=== PATIENT | female | born 1970 | race Caucasian/White ===

== ENCOUNTER → 2019-07-17 | Outpatient (REF) | payer MEDICAID | LOC: M LAB LCGH 12:02 | PROVIDERS: ATTEND Nurse Practitioner Family | DX: Z12.4 Encounter for screening for malignant neoplasm of cervix (principal) ==

== ENCOUNTER 2021-12-05 00:04 | Emergency (ER) | payer MEDICAID ==
[2021-12-05 02:05] LABS: HEMATOCRIT 41.6 % (36.0-47.0); HEMOGLOBIN 14.1 g/dl (12.0-15.5); MEAN CORPUSCULAR HEMOGLOBIN 33.8 pg (27.0-33.0); MEAN CORPUSCULAR HGB CONC 33.9 g/dl (32.0-36.5); MEAN CORPUSCULAR VOLUME 99.8 fl (80.0-96.0); PLATELET COUNT, AUTOMATED 278 10^3/uL (150-450); RED BLOOD COUNT 4.17 10^6/uL (4.00-5.40); WHITE BLOOD COUNT 8.5 10^3/uL (4.0-10.0)
[2021-12-05 02:32] LABS: HCG, SERUM QUALITATIVE NEGATIVE (NEGATIVE)
[2021-12-05 02:35] LABS: AMPHETAMINES LEVEL URINE NEGATIVE (NEGATIVE); BARBITURATES URINE NEGATIVE (NEGATIVE); BENZODIAZEPINES URINE NEGATIVE (NEGATIVE); CANNABINOIDS URINE NEGATIVE (NEGATIVE); COCAINE METABOLITE URINE NEGATIVE (NEGATIVE); METHADONE URINE NEGATIVE (NEGATIVE); OPIATES URINE NEGATIVE (NEGATIVE); PHENCYCLIDINE URINE NEGATIVE (NEGATIVE)
[2021-12-05 03:06] LABS: ACETAMINOPHEN LEVEL < 2.0 UG/ML (10.0-30.0); ALBUMIN 3.8 GM/DL (3.2-5.2); ALT/SGPT 55 U/L (12-78); BILIRUBIN,DIRECT < 0.1 MG/DL (0.0-0.2); BILIRUBIN,TOTAL 0.2 MG/DL (0.2-1.0); BLOOD UREA NITROGEN 9 MG/DL (7-18); CALCIUM LEVEL 8.8 MG/DL (8.5-10.1); CARBON DIOXIDE LEVEL 25 MEQ/L (21-32); CHLORIDE LEVEL 110 MEQ/L (98-107); CREATININE FOR GFR 0.72 MG/DL (0.55-1.30); ETHYL ALCOHOL (ETHANOL) 0.271 % (0.000-0.010); GLOMERULAR FILTRATION RATE > 60.0 (>51); GLUCOSE, FASTING 107 MG/DL (70-100); POTASSIUM SERUM 4.2 MEQ/L (3.5-5.1); SALICYLATE LEVEL 3.4 MG/DL (5.0-30.0); SODIUM LEVEL 144 MEQ/L (136-145); TOTAL PROTEIN 7.8 GM/DL (6.4-8.2)
[2021-12-05] MEDS ORDERED: METAL LOCK LOOP XX ONE (03:13)
[2021-12-05 03:36] LABS: RSV AMPLIFICATION NEGATIVE (NEGATIVE)
[2021-12-05] MEDS ORDERED: ROSU20TA5 PO (11:17)
[2021-12-05] MEDS ORDERED: BUPR15TA PO (11:17)
[2021-12-05] MEDS ORDERED: MED NOTE (11:19)
[2021-12-05] MEDS ORDERED: HOME MED LIST COMPLETE! XX SCH (11:25)
[2021-12-05 12:09] VITALS: BP 116/73
== END 2021-12-05 12:21 | disposition home or self-care (01) ==
LOC: M ED 00:04
DX: F10.929 Alcohol use, unspecified with intoxication, unspecified (principal); Z79.899 Other long term (current) drug therapy; Z88.0 Allergy status to penicillin; Z88.1 Allergy status to other antibiotic agents; Z88.2 Allergy status to sulfonamides

== ENCOUNTER 2025-07-12 22:19 | Emergency (ER) | payer OTHER ==
[~2025-07-12] VITALS: Ht 157.5 cm; Wt 76.3 kg
[~2025-07-12 22:19] MED LIST: BUPR15TA PO; HYDR50TA70 PO; LEXA1TAB2 PO; MED NOTE; ROSU20TA86 PO
[2025-07-12 22:26] VITALS: TEMP 96.7
[2025-07-12 23:07] LABS: PLATELET COUNT, AUTOMATED 209 10^3/uL (150-450)
[2025-07-12 23:21] LABS: AMPHETAMINES LEVEL URINE NEGATIVE (NEGATIVE)
[2025-07-12 23:22] LABS: BARBITURATES URINE NEGATIVE (NEGATIVE); BENZODIAZEPINES URINE NEGATIVE (NEGATIVE); CANNABINOIDS URINE NEGATIVE (NEGATIVE); COCAINE METABOLITE URINE NEGATIVE (NEGATIVE); METHADONE URINE NEGATIVE (NEGATIVE); OPIATES URINE NEGATIVE (NEGATIVE); PHENCYCLIDINE URINE NEGATIVE (NEGATIVE)
[2025-07-12 23:26] LABS: ALT/SGPT 58 U/L (7.0-40); AST/SGOT 67 U/L (<34); CALCIUM LEVEL 9.3 MG/DL (8.5-10.1); CARBON DIOXIDE LEVEL 30 MMOL/L (20-31); CHLORIDE LEVEL 101 MMOL/L (98-107); CREATININE FOR GFR 0.60 MG/DL (0.55-1.30); GLOMERULAR FILTRATION RATE > 90.0 (>51); POTASSIUM SERUM 3.0 MMOL/L (3.5-5.1); SALICYLATE LEVEL < 3.0 MG/DL (<30); SODIUM LEVEL 144 MMOL/L (136-145)
[2025-07-12 23:33] LABS: HCG, SERUM QUALITATIVE NEGATIVE (NEGATIVE)
[2025-07-12 23:40] LABS: ETHYL ALCOHOL (ETHANOL) 0.347 % (0.000-0.010)
[2025-07-13 05:22] VITALS: BP 167/88; O2SAT 98
== END 2025-07-13 07:07 | disposition home or self-care (01) ==
LOC: M ED 22:19
DX: F43.0 Acute stress reaction (principal); R45.851 Suicidal ideations; F10.129 Alcohol abuse with intoxication, unspecified; F32.A Depression, unspecified; Z79.899 Other long term (current) drug therapy

== ENCOUNTER 2025-07-14 18:07 | Emergency (ER) | payer OTHER ==
[2025-07-14 18:55] LABS: PLATELET COUNT, AUTOMATED 248 10^3/uL (150-450)
[2025-07-14 19:21] LABS: AMPHETAMINES LEVEL URINE NEGATIVE (NEGATIVE); BARBITURATES URINE NEGATIVE (NEGATIVE); BENZODIAZEPINES URINE NEGATIVE (NEGATIVE); COCAINE METABOLITE URINE NEGATIVE (NEGATIVE); METHADONE URINE NEGATIVE (NEGATIVE); OPIATES URINE NEGATIVE (NEGATIVE)
[2025-07-14 19:22] LABS: CANNABINOIDS URINE NEGATIVE (NEGATIVE); PHENCYCLIDINE URINE NEGATIVE (NEGATIVE)
[2025-07-14 19:24] LABS: SALICYLATE LEVEL < 3.0 MG/DL (<30)
[2025-07-14 19:54] LABS: ALT/SGPT 87 U/L (7.0-40); AST/SGOT 118 U/L (<34); CALCIUM LEVEL 9.2 MG/DL (8.5-10.1); CARBON DIOXIDE LEVEL 31 MMOL/L (20-31); CHLORIDE LEVEL 103 MMOL/L (98-107); CREATININE FOR GFR 0.53 MG/DL (0.55-1.30); ETHYL ALCOHOL (ETHANOL) 0.338 % (0.000-0.010); GLOMERULAR FILTRATION RATE > 90.0 (>51); POTASSIUM SERUM 3.3 MMOL/L (3.5-5.1); SODIUM LEVEL 146 MMOL/L (136-145)
[2025-07-14] MEDS ORDERED: HOME MED LIST COMPLETE! XX SCH (19:55)
[2025-07-14] MEDS: POTASSIUM CHLORIDE 10MEQ SR TABLET PO ONE (20:24)
[2025-07-14] MEDS: THIAMINE 100 MG TAB PO SCH (20:24)
[2025-07-15] MEDS: FOLIC ACID 1 MG TAB PO SCH (10:26)
[2025-07-15] MEDS: MULTIVITAMINS/MINERALS THERAP 1 TAB PO SCH (10:26)
[2025-07-15 12:45] VITALS: BP 135/70; TEMP 97; O2SAT 95
== END 2025-07-15 13:08 | disposition home or self-care (01) ==
LOC: M ED 18:07
DX: F10.14 Alcohol abuse with alcohol-induced mood disorder (principal); F32.A Depression, unspecified; Z88.0 Allergy status to penicillin; Z88.2 Allergy status to sulfonamides

== ENCOUNTER 2025-08-13 17:22 | Emergency (ER) | payer OTHER ==
[~2025-08-13] VITALS: Ht 157.5 cm; Wt 73.2 kg
[2025-08-13 17:28] VITALS: BP 143/79; TEMP 98; O2SAT 97
[2025-08-13 18:01] LABS: PLATELET COUNT, AUTOMATED 315 10^3/uL (150-450)
[2025-08-13 18:22] LABS: AMPHETAMINES LEVEL URINE NEGATIVE (NEGATIVE); BARBITURATES URINE NEGATIVE (NEGATIVE); BENZODIAZEPINES URINE NEGATIVE (NEGATIVE); CANNABINOIDS URINE NEGATIVE (NEGATIVE); COCAINE METABOLITE URINE NEGATIVE (NEGATIVE); METHADONE URINE NEGATIVE (NEGATIVE); OPIATES URINE NEGATIVE (NEGATIVE); PHENCYCLIDINE URINE NEGATIVE (NEGATIVE)
[2025-08-13 18:30] LABS: ALT/SGPT 66 U/L (7.0-40); AST/SGOT 71 U/L (<34); CALCIUM LEVEL 9.9 MG/DL (8.5-10.1); CARBON DIOXIDE LEVEL 24 MMOL/L (20-31); CHLORIDE LEVEL 107 MMOL/L (98-107); CREATININE FOR GFR 0.52 MG/DL (0.55-1.30); GLOMERULAR FILTRATION RATE > 90.0 (>51); POTASSIUM SERUM 4.0 MMOL/L (3.5-5.1); SALICYLATE LEVEL < 3.0 MG/DL (<30); SODIUM LEVEL 141 MMOL/L (136-145)
[2025-08-13 18:32] LABS: ETHYL ALCOHOL (ETHANOL) 0.198 % (0.000-0.010)
== END 2025-08-14 02:45 | disposition home or self-care (01) ==
LOC: M ED 17:22
DX: F10.129 Alcohol abuse with intoxication, unspecified (principal); F32.A Depression, unspecified; F41.9 Anxiety disorder, unspecified; Z88.0 Allergy status to penicillin; Z88.2 Allergy status to sulfonamides; Z63.0 Problems in relationship with spouse or partner